=== PATIENT | male | born 1980 | race Caucasian/White ===

== ENCOUNTER 2017-03-02 03:12 | Emergency (ER) | payer SELFPAY ==
[~2017-03-02] VITALS: Ht 170.2 cm; Wt 72.6 kg
[2017-03-02 03:07] VITALS: BP 125/62
[2017-03-02] MEDS ORDERED: HYDROCODON-ACE1 EA15 ORAL (03:23)
--- NOTE | 2017-03-02 03:23 | Emergency Room Report ---
History of Present Illness General Chief Complaint: Multiple Trauma/Fall Source: Patient Present Illness HPI This is a 36-year-old male who is right-hand dominant. He presents with chief complaint of clavicle pain. He was skateboarding and fell onto the left shoulder. He felt bones cracking. Complaining of severe pain 10 out of 10. Worse with movement. Did not pass out. No head injury. Admits to using methamphetamine 2 hours prior to arrival. Allergies: Coded Allergies: No Known Allergies (Unverified , 03/02/17) Patient History Past Medical History: see triage record, old chart reviewed Past Surgical History: none Pertinent Family History: none Social History: Reports: drug use Immunizations: other Reviewed Nursing Documentation: PMH: Agreed, PSxH: Agreed Nursing Documentation-PMH Past Medical History: No History, Except For Review of Systems Eye: Denies: eye pain, blurred vision ENT: Denies: ear pain, nose congestion, throat swelling Respiratory: Denies: cough, shortness of breath Cardiovascular: Denies: chest pain, palpitations Gastrointestinal: Denies: abdominal pain, diarrhea, nausea, vomiting Musculoskeletal: Reports: joint pain, Denies: back pain Skin: Denies: rash Neurological: Denies: headache, numbness Endocrine: Denies: increased thirst, increased urine Hematologic/Lymphatic: Denies: easy bruising All Other Systems: negative except mentioned in HPI Physical Exam Vital Signs Date Time Temp Pulse Resp B/P (MAP) Pulse Ox O2 Delivery O2 Flow Rate FiO2 03/02/17 03:03 97.3 72 16 138/72 99 Room Air vitals normal Sp02 EP Interpretation: reviewed, normal General Appearance: well appearing, no apparent distress, alert Head: normocephalic, atraumatic Eyes: bilateral eye PERRL, bilateral eye EOMI ENT: hearing grossly normal, normal pharynx Neck: full range of motion, supple, no meningismus Respiratory: chest non-tender, lungs clear, normal breath sounds Cardiovascular #1: regular rate, rhythm, no murmur Gastrointestinal: normal bowel sounds, non tender, no mass, no organomegaly, no bruit, non-distended Musculoskeletal: back normal, gait/station normal, other - Tenderness over the left clavicle. Sensation normal over shoulder Psychiatric: mood/affect normal Skin: warm/dry Procedures Splinting Splinting : Consent: Verbal Location: Left shoulder Pre-Made Type: Sling Pre-Proc Neuro Vasc Exam: normal Post-Proc Neuro Vasc Exam: normal Patient Tolerated: Well Complications: None Medical Decision Making Diagnostic Impression: Primary Impression: Closed left clavicular fracture Qualified Codes: S42.022A - Displaced fracture of shaft of left clavicle, initial encounter for closed fracture Additional Impression: Methamphetamine abuse ER Course Patient presents with clavicle fracture from a fall. No dislocation. No other injury. We'll discharge home. Other X-Ray Diagnostic Results Other X-Ray Diagnostic Results : X-Ray ordered: Left clavicle x-rays # of Views/Limited Vs Complete: 2 View Indication: Pain EP Interpretation: Yes Interpretation: no dislocation, no soft tissue swelling, other - Comminuted distal clavicle fracture Impression: Other - Left clavicle fracture Electronically Signed by: Electronically signed by Rudy Tsai MD Last Vital Signs Date Time Temp Pulse Resp B/P (MAP) Pulse Ox O2 Delivery O2 Flow Rate FiO2 03/02/17 03:07 97.3 108 16 125/62 100 Room Air Status: improved Disposition: HOME, SELF-CARE Condition: Stable Scripts Hydrocodone/Acetaminophen 5-325* (HYDROCODONE/ACETAMINOPHEN 5-325*) 1 Each Tablet 1 TAB ORAL Q6H Y for For Pain, #30 TAB 0 Refills Prov: RUDY TSAI M.D. 03/02/17 Additional Instructions: Followup with your DrBeulah in 7 days. Return if symptom worsen. You may need referral to see an orthopedic RUDY Osuna M.D. Mar 02, 2017 03:23
[2017-03-02] MEDS ORDERED: Norco 5mg/325mg tab ORAL ONE (03:30)
[2017-03-02 03:35] VITALS: BP 125/62
--- NOTE | 2017-03-02 10:25 | Diagnostic Imaging Report ---
History: Fall, pain and trauma. Technique: 2 views of the left shoulder are provided. Comparison: No prior study is available for comparison. Findings: Severely comminuted, displaced and angulated fracture of the mid left clavicle is identified. There is a 7.7 mm gap between the acromion and distal clavicular head. The sternoclavicular joint is not optimally evaluated due to overlapping osseous structures. The shoulder joint is also not optimally evaluated due to suboptimal positioning. Dislocation is not excluded. Urgent orthopedic consultation is recommended. Impression: Severely comminuted, displaced and angulated mid left clavicular fracture with a 7.7 mm gap within the acromion and clavicular head. Suboptimal evaluation of the sternoclavicular joint and glenohumeral joint due to overlapping opacities and suboptimal positioning. Urgent orthopedic consultation is recommended.
[2017-03-03] MEDS ORDERED: NORCO 5-325 TA1 EACH ORAL (14:17)
== END 2017-03-02 03:35 | disposition home or self-care (01) ==
LOC: EDBD 03:12 → EMR 03:30
DX: S42.032A Displaced fracture of lateral end of left clavicle, initial encounter for closed fracture (principal); V00.131A Fall from skateboard, initial encounter; Y93.51 Activity, roller skating (inline) and skateboarding; Y92.89 Other specified places as the place of occurrence of the external cause; F15.10 Other stimulant abuse, uncomplicated
CPT/HCPCS: 99283

== ENCOUNTER 2017-03-03 13:38 | Emergency (ER) | payer OTHER ==
[~2017-03-03] VITALS: Ht 170.2 cm; Wt 72.6 kg
[~2017-03-03 13:38] MED LIST: HYDROCODON-ACE1 EA15 ORAL
--- NOTE | 2017-03-03 14:16 | Emergency Room Report ---
History of Present Illness General Chief Complaint: Upper Extremity Injury Present Illness HPI 36-year-old male presents to emergency department complaining of 10 out of 10 in severity left clavicular pain with swelling, deformity and bruising. Patient was seen here in the emergency department last night and diagnosed with clavicular fracture. Patient states that he lost his prescription for pain medication and needs a new one. He denies new trauma or fall. Denies numbness tingling or loss of sensation or gross motor movements of the extremities, incontinence of bowel or bladder. Denies CP, Palpitations, LOC, AMS, dizziness, Changes in Vision, Sensation, paresthesias, or a sudden severe headache. Allergies: Coded Allergies: No Known Allergies (Unverified , 03/02/17) Patient History Past Medical History: see triage record Past Surgical History: none Pertinent Family History: none Immunizations: UTD Reviewed Nursing Documentation: PMH: Agreed, PSxH: Agreed Review of Systems All Other Systems: negative except mentioned in HPI Physical Exam Vital Signs Date Time Temp Pulse Resp B/P (MAP) Pulse Ox O2 Delivery O2 Flow Rate FiO2 03/03/17 13:51 97.3 106 20 123/82 99 Nasal Cannula Sp02 EP Interpretation: reviewed, normal General Appearance: no apparent distress, alert, GCS 15, non-toxic Head: normocephalic, atraumatic Eyes: bilateral eye normal inspection, bilateral eye PERRL ENT: hearing grossly normal, normal voice Neck: full range of motion Respiratory: lungs clear, normal breath sounds, speaking full sentences Cardiovascular #1: regular rate, rhythm, normal capillary refill Musculoskeletal: back normal, gait/station normal, tender - TTP left anterior collar bone, obvious swelling, deformity and bruising. Neurologic: alert, oriented x3, responsive, motor strength/tone normal, sensory intact, normal gait, speech normal Skin: normal color, no rash, warm/dry, well hydrated Medical Decision Making PA Attestation Dr. Walters is my supervising Physician whom patient management has been discussed with. Diagnostic Impression: Primary Impression: Medication refill ER Course 36-year-old male presents to emergency department complaining of 10 out of 10 in severity left clavicular pain with swelling, deformity and bruising. Patient was seen here in the emergency department last night and diagnosed with clavicular fracture. Patient states that he lost his prescription for pain medication and needs a new one. He denies new trauma or fall. Denies numbness tingling or loss of sensation or gross motor movements of the extremities, incontinence of bowel or bladder. Denies CP, Palpitations, LOC, AMS, dizziness, Changes in Vision, Sensation, paresthesias, or a sudden severe headache. Ddx considered but are not limited to: drug seeking, OD, medication refill, new trauma Vital signs: are WNL, pt. is afebrile H&PE are most consistent with need for medication refill. ORDERS: none required at this time, the diagnosis is clinical ED INTERVENTIONS: -Hazen PO Discussed with the patient that our policy he is that we do not refill controlled substance prescriptions one lost or stolen and that he needs to followup with PCP or surveillance specialist. Also this patient that I will give him oral medication here in the department to manage his pain and compromise and give a very small quantity so that he can minimize his symptoms fall attempting to make an appointment with primary care for surveillance specialist. DISCHARGE: At this time pt. is stable for d/c to home. Will provide printed patient care instructions, and any necessary prescriptions. Care plan and follow up instructions have been discussed with the patient prior to discharge. Last Vital Signs Date Time Temp Pulse Resp B/P (MAP) Pulse Ox O2 Delivery O2 Flow Rate FiO2 03/03/17 13:51 97.3 106 20 123/82 99 Nasal Cannula Disposition: HOME, SELF-CARE Condition: Stable Scripts Hydrocodone Bit/Acetaminophen 5-325* (NORCO 5-325*) 1 Each Tablet 1 TAB ORAL Q6H Y for For Pain, #9 TAB 0 Refills Prov: Christianne Schulte 03/03/17 Patient Instructions: Medicine Refill at the Emergency Department Additional Instructions: Take medications as directed. Follow up with a Primary Care Provider in 3-5 days, even if your symptoms have resolved. --Please review list of primary care clinics, if you do not already have a primary care provider Return sooner to ED if new symptoms occur, or current symptoms become worse. Do not drink alcohol, drive, or operate heavy machinery while taking Hazen as this may cause drowsiness. - Please note that this Emergency Department Report was dictated using [employer]ger[employer] specialist technology software, occasionally this can lead to erroneous entry secondary to interpretation by the dictation equipment. Christianne Schulte Mar 03, 2017 14:16
--- NOTE | 2017-03-03 14:16 | Emergency Room Report ---
History of Present Illness General Chief Complaint: Upper Extremity Injury Present Illness HPI 36-year-old male presents to emergency department complaining of 10 out of 10 in severity left clavicular pain with swelling, deformity and bruising. Patient was seen here in the emergency department last night and diagnosed with clavicular fracture. Patient states that he lost his prescription for pain medication and needs a new one. He denies new trauma or fall. Denies numbness tingling or loss of sensation or gross motor movements of the extremities, incontinence of bowel or bladder. Denies CP, Palpitations, LOC, AMS, dizziness, Changes in Vision, Sensation, paresthesias, or a sudden severe headache. Allergies: Coded Allergies: No Known Allergies (Unverified , 03/02/17) Patient History Past Medical History: see triage record Past Surgical History: none Pertinent Family History: none Immunizations: UTD Reviewed Nursing Documentation: PMH: Agreed, PSxH: Agreed Review of Systems All Other Systems: negative except mentioned in HPI Physical Exam Vital Signs Date Time Temp Pulse Resp B/P (MAP) Pulse Ox O2 Delivery O2 Flow Rate FiO2 03/03/17 13:51 97.3 106 20 123/82 99 Nasal Cannula Sp02 EP Interpretation: reviewed, normal General Appearance: no apparent distress, alert, GCS 15, non-toxic Head: normocephalic, atraumatic Eyes: bilateral eye normal inspection, bilateral eye PERRL ENT: hearing grossly normal, normal voice Neck: full range of motion Respiratory: lungs clear, normal breath sounds, speaking full sentences Cardiovascular #1: regular rate, rhythm, normal capillary refill Musculoskeletal: back normal, gait/station normal, tender - TTP left anterior collar bone, obvious swelling, deformity and bruising. Neurologic: alert, oriented x3, responsive, motor strength/tone normal, sensory intact, normal gait, speech normal Skin: normal color, no rash, warm/dry, well hydrated Medical Decision Making PA Attestation Dr. Walters is my supervising Physician whom patient management has been discussed with. Diagnostic Impression: Primary Impression: Medication refill ER Course 36-year-old male presents to emergency department complaining of 10 out of 10 in severity left clavicular pain with swelling, deformity and bruising. Patient was seen here in the emergency department last night and diagnosed with clavicular fracture. Patient states that he lost his prescription for pain medication and needs a new one. He denies new trauma or fall. Denies numbness tingling or loss of sensation or gross motor movements of the extremities, incontinence of bowel or bladder. Denies CP, Palpitations, LOC, AMS, dizziness, Changes in Vision, Sensation, paresthesias, or a sudden severe headache. Ddx considered but are not limited to: drug seeking, OD, medication refill, new trauma Vital signs: are WNL, pt. is afebrile H&PE are most consistent with need for medication refill. ORDERS: none required at this time, the diagnosis is clinical ED INTERVENTIONS: -Gatzke PO Discussed with the patient that our policy he is that we do not refill controlled substance prescriptions one lost or stolen and that he needs to followup with PCP or clerk specialist. Also this patient that I will give him oral medication here in the department to manage his pain and compromise and give a very small quantity so that he can minimize his symptoms fall attempting to make an appointment with primary care for clerk specialist. DISCHARGE: At this time pt. is stable for d/c to home. Will provide printed patient care instructions, and any necessary prescriptions. Care plan and follow up instructions have been discussed with the patient prior to discharge. Last Vital Signs Date Time Temp Pulse Resp B/P (MAP) Pulse Ox O2 Delivery O2 Flow Rate FiO2 03/03/17 13:51 97.3 106 20 123/82 99 Nasal Cannula Disposition: HOME, SELF-CARE Condition: Stable Scripts Hydrocodone Bit/Acetaminophen 5-325* (NORCO 5-325*) 1 Each Tablet 1 TAB ORAL Q6H Y for For Pain, #9 TAB 0 Refills Prov: Christianne Schulte 03/03/17 Patient Instructions: Medicine Refill at the Emergency Department Additional Instructions: Take medications as directed. Follow up with a Primary Care Provider in 3-5 days, even if your symptoms have resolved. --Please review list of primary care clinics, if you do not already have a primary care provider Return sooner to ED if new symptoms occur, or current symptoms become worse. Do not drink alcohol, drive, or operate heavy machinery while taking Gatzke as this may cause drowsiness. - Please note that this Emergency Department Report was dictated using [employer] intern technology software, occasionally this can lead to erroneous entry secondary to interpretation by the dictation equipment. Christianne Schulte Mar 03, 2017 14:16
--- NOTE | 2017-03-03 14:16 | Emergency Room Report ---
History of Present Illness General Chief Complaint: Upper Extremity Injury Present Illness HPI 36-year-old male presents to emergency department complaining of 10 out of 10 in severity left clavicular pain with swelling, deformity and bruising. Patient was seen here in the emergency department last night and diagnosed with clavicular fracture. Patient states that he lost his prescription for pain medication and needs a new one. He denies new trauma or fall. Denies numbness tingling or loss of sensation or gross motor movements of the extremities, incontinence of bowel or bladder. Denies CP, Palpitations, LOC, AMS, dizziness, Changes in Vision, Sensation, paresthesias, or a sudden severe headache. Allergies: Coded Allergies: No Known Allergies (Unverified , 03/02/17) Patient History Past Medical History: see triage record Past Surgical History: none Pertinent Family History: none Immunizations: UTD Reviewed Nursing Documentation: PMH: Agreed, PSxH: Agreed Review of Systems All Other Systems: negative except mentioned in HPI Physical Exam Vital Signs Date Time Temp Pulse Resp B/P (MAP) Pulse Ox O2 Delivery O2 Flow Rate FiO2 03/03/17 13:51 97.3 106 20 123/82 99 Nasal Cannula Sp02 EP Interpretation: reviewed, normal General Appearance: no apparent distress, alert, GCS 15, non-toxic Head: normocephalic, atraumatic Eyes: bilateral eye normal inspection, bilateral eye PERRL ENT: hearing grossly normal, normal voice Neck: full range of motion Respiratory: lungs clear, normal breath sounds, speaking full sentences Cardiovascular #1: regular rate, rhythm, normal capillary refill Musculoskeletal: back normal, gait/station normal, tender - TTP left anterior collar bone, obvious swelling, deformity and bruising. Neurologic: alert, oriented x3, responsive, motor strength/tone normal, sensory intact, normal gait, speech normal Skin: normal color, no rash, warm/dry, well hydrated Medical Decision Making PA Attestation Dr. Walters is my supervising Physician whom patient management has been discussed with. Diagnostic Impression: Primary Impression: Medication refill ER Course 36-year-old male presents to emergency department complaining of 10 out of 10 in severity left clavicular pain with swelling, deformity and bruising. Patient was seen here in the emergency department last night and diagnosed with clavicular fracture. Patient states that he lost his prescription for pain medication and needs a new one. He denies new trauma or fall. Denies numbness tingling or loss of sensation or gross motor movements of the extremities, incontinence of bowel or bladder. Denies CP, Palpitations, LOC, AMS, dizziness, Changes in Vision, Sensation, paresthesias, or a sudden severe headache. Ddx considered but are not limited to: drug seeking, OD, medication refill, new trauma Vital signs: are WNL, pt. is afebrile H&PE are most consistent with need for medication refill. ORDERS: none required at this time, the diagnosis is clinical ED INTERVENTIONS: -Downing PO Discussed with the patient that our policy he is that we do not refill controlled substance prescriptions one lost or stolen and that he needs to followup with PCP or route sales specialist. Also this patient that I will give him oral medication here in the department to manage his pain and compromise and give a very small quantity so that he can minimize his symptoms fall attempting to make an appointment with primary care for route sales specialist. DISCHARGE: At this time pt. is stable for d/c to home. Will provide printed patient care instructions, and any necessary prescriptions. Care plan and follow up instructions have been discussed with the patient prior to discharge. Last Vital Signs Date Time Temp Pulse Resp B/P (MAP) Pulse Ox O2 Delivery O2 Flow Rate FiO2 03/03/17 13:51 97.3 106 20 123/82 99 Nasal Cannula Disposition: HOME, SELF-CARE Condition: Stable Scripts Hydrocodone Bit/Acetaminophen 5-325* (NORCO 5-325*) 1 Each Tablet 1 TAB ORAL Q6H Y for For Pain, #9 TAB 0 Refills Prov: Christianne Schulte 03/03/17 Patient Instructions: Medicine Refill at the Emergency Department Additional Instructions: Take medications as directed. Follow up with a Primary Care Provider in 3-5 days, even if your symptoms have resolved. --Please review list of primary care clinics, if you do not already have a primary care provider Return sooner to ED if new symptoms occur, or current symptoms become worse. Do not drink alcohol, drive, or operate heavy machinery while taking Downing as this may cause drowsiness. - Please note that this Emergency Department Report was dictated using [employer] technology software, occasionally this can lead to erroneous entry secondary to interpretation by the dictation equipment. Christianne Schulte Mar 03, 2017 14:16
[2017-03-03] MEDS ORDERED: NORCO 5-325 TA1 EACH ORAL (14:17)
[2017-03-03 14:30] VITALS: BP 121/82
[2017-03-03] MEDS ORDERED: Norco 5mg/325mg tab ORAL ONE (14:30)
== END 2017-03-03 14:30 | disposition home or self-care (01) ==
LOC: EMR 14:10
DX: Z76.0 Encounter for issue of repeat prescription (principal); M25.512 Pain in left shoulder
CPT/HCPCS: 99281